=== PATIENT | female | born 1985 | race Caucasian/White ===

== ENCOUNTER 2016-03-22 09:34 | Emergency (ER) | payer OTHER ==
[~2016-03-22] VITALS: Ht 162.6 cm; Wt 51.3 kg
[2016-03-22 09:36] VITALS: BP 115/61
== END 2016-03-22 10:51 | disposition home or self-care (01) ==
LOC: ER 09:35
DX: J02.9 Acute pharyngitis, unspecified (principal); Z95.2 Presence of prosthetic heart valve; Z98.890 Other specified postprocedural states; F17.210 Nicotine dependence, cigarettes, uncomplicated
CPT/HCPCS: 71010; 99283; A4606; Z7610

== ENCOUNTER 2017-07-12 23:38 | Emergency (ER) | payer OTHER ==
[~2017-07-12] VITALS: Ht 162.6 cm; Wt 52.2 kg
[2017-07-13 00:28] VITALS: BP 118/71
[2017-07-13] MEDS ORDERED: AMOXICILLIN TRIHYDRATE 250 MG CAPSULE PO ONE (02:30)
[2017-07-13] MEDS ORDERED: AMOXICILLIN TRIHYDRATE 250 MG CAPSULE ONE (02:38)
== END 2017-07-13 02:45 | disposition home or self-care (01) ==
LOC: ER 23:39
DX: J02.9 Acute pharyngitis, unspecified (principal); F17.200 Nicotine dependence, unspecified, uncomplicated; Z95.2 Presence of prosthetic heart valve; Z98.890 Other specified postprocedural states
CPT/HCPCS: A4606; Z7610

== ENCOUNTER 2018-06-05 02:52 | Emergency (ER) | payer OTHER ==
[~2018-06-05] VITALS: Ht 165.1 cm; Wt 52.2 kg
[2018-06-05 03:20] VITALS: BP 122/72
== END 2018-06-05 05:34 | disposition home or self-care (01) ==
LOC: ER 02:52
DX: J02.8 Acute pharyngitis due to other specified organisms (principal); B97.89 Other viral agents as the cause of diseases classified elsewhere; F17.200 Nicotine dependence, unspecified, uncomplicated; Z71.6 Tobacco abuse counseling; Z95.4 Presence of other heart-valve replacement; Z98.890 Other specified postprocedural states
CPT/HCPCS: 86403-TC; 87070-TC

== ENCOUNTER 2018-06-09 17:11 | Emergency (ER) | payer OTHER ==
[~2018-06-09] VITALS: Ht 165.1 cm; Wt 52.2 kg
[2018-06-09 17:47] VITALS: BP 109/73
[2018-06-09] MEDS ORDERED: DEXAMETHASONE SOD PHOSPHATE 4 MG/ML VIAL ONE ×2 (18:37→18:39)
--- NOTE | 2018-06-09 18:52 | NUR ---
Patient discharged to home in stable condition. Written and verbal after care instructions given. Patient verbalizes understanding of instruction.
[2018-06-09] MEDS ORDERED: DEXAMETHASONE SOD PHOSPHATE 4 MG/ML VIAL IM ONE (19:00)
== END 2018-06-09 18:51 | disposition home or self-care (01) ==
LOC: ER 17:11
DX: J03.90 Acute tonsillitis, unspecified (principal); H73.013 Bullous myringitis, bilateral; F17.200 Nicotine dependence, unspecified, uncomplicated; Z95.818 Presence of other cardiac implants and grafts; Z98.890 Other specified postprocedural states
CPT/HCPCS: 96372; 99283; J1100 ×2

== ENCOUNTER 2022-01-14 16:28 | Emergency (ER) | payer OTHER ==
[~2022-01-14] VITALS: Ht 165.1 cm; Wt 52.2 kg
[2022-01-14 17:00] VITALS: BP 116/66
--- NOTE | 2022-01-14 17:00 | NUR ---
WANTS IMMUNIZATION AND MALARIAL PILLS SINCE SHE'S GOING TO [place]
[2022-01-14] MEDS ORDERED: DOXY100C2 PO (18:00)
--- NOTE | 2022-01-14 18:28 | NUR ---
pt refused to wait for pregnanct test, pt signed waiver to recieve medication
--- NOTE | 2022-01-14 18:42 | NUR ---
Patient discharged to home in stable condition. Written and verbal after care instructions given. Patient verbalizes understanding of instruction.
== END 2022-01-14 18:45 | disposition home or self-care (01) ==
LOC: ER 16:30
DX: Z29.12 Encounter for prophylactic antivenin (principal)

== ENCOUNTER 2022-01-17 09:16 | Emergency (ER) | payer OTHER ==
[~2022-01-17] VITALS: Ht 162.6 cm; Wt 52.2 kg
[~2022-01-17 09:16] MED LIST: DOXY100C2 PO
[2022-01-17 09:29] VITALS: BP 120/70
--- NOTE | 2022-01-17 09:29 | NUR ---
BIBS C/O SORE THROAT, ACHING CHEST, PAIN WHILE SWALLOWING, BACK PAIN, AND HEADACHE. NO RESPIRATORY DISTRESS NOTED. AWAITING MD ORDERS.
[2022-01-17] MEDS ORDERED: DEXAMETHASONE SOD PHOSPHATE 10 MG/ML VIAL ONE (11:12)
[2022-01-17] MEDS: DEXAMETHASONE SOD PHOSPHATE 10 MG/ML VIAL MC ONE (11:16)
[2022-01-17] MEDS ORDERED: AMOX-430 PO (11:39)
--- NOTE | 2022-01-17 11:49 | NUR ---
Patient discharged to home in stable condition. Written and verbal after care instructions given. Patient verbalizes understanding of instruction.
== END 2022-01-17 12:03 | disposition home or self-care (01) ==
LOC: ER 09:16
DX: J06.9 Acute upper respiratory infection, unspecified (principal); R05.9 Cough, unspecified; F17.200 Nicotine dependence, unspecified, uncomplicated; Z79.899 Other long term (current) drug therapy
CPT/HCPCS: 99283; 71045; 93005; J1100

== ENCOUNTER 2023-02-25 22:24 | Emergency (ER) | payer OTHER ==
[~2023-02-25] VITALS: Ht 162.6 cm; Wt 52.2 kg
[~2023-02-25 22:24] MED LIST changes: +AMOX-430 PO
[2023-02-25 22:52] VITALS: TEMP 98.5
[2023-02-26] MEDS ORDERED: ACET-2605 PO (00:38)
[2023-02-26] MEDS ORDERED: IBUP-1955 PO (00:38)
[2023-02-26] MEDS ORDERED: AMOX-430 PO (00:38)
[2023-02-26] MEDS ORDERED: dexaMETHasone SOD PHOSPHATE 1 ML ONE (00:50)
[2023-02-26] MEDS: dexaMETHasone SOD PHOSPHATE 10 MG/ML VIAL IV ONE (01:09)
[2023-02-26 01:20] VITALS: BP 126/82; O2SAT 98
== END 2023-02-26 01:21 | disposition home or self-care (01) ==
LOC: ER 22:28
DX: J06.9 Acute upper respiratory infection, unspecified (principal); J02.9 Acute pharyngitis, unspecified; Z20.822 Contact with and (suspected) exposure to COVID-19
CPT/HCPCS: 99283; 87426; 87804 ×2; 87880; 96374; J1100; 86403-TC